=== PATIENT | male | born 1940 | race Caucasian/White ===

== ENCOUNTER 2024-09-24 09:45 | Emergency (ER) | payer MEDICARE, SELFPAY ==
[2024-09-24 09:45] VITALS: BP 188/77; BP 201/99; PULSE 60; PULSE 67; RESP 16; TEMP 36.4; O2SAT 100; BMI 34.4
--- NOTE | 2024-09-24 09:59 | EKG12_ITS ---
Test Reason : HTN Blood Pressure : / mmHG Vent. Rate : 063 BPM Atrial Rate : 063 BPM P-R Int : 184 ms QRS Dur : 106 ms QT Int : 416 ms P-R-T Axes : 029 009 066 degrees QTc Int : 425 ms Normal sinus rhythm Cannot rule out Inferior infarct , age undetermined Abnormal ECG Confirmed by MARICARMEN GONSALES, SHAW ([id number]), industrial editor ASIA ODONNELL ([id number]) on 09/25/2024 9:54:39 AM Referred By: Confirmed By:SHAW HERNADEZ MD
[2024-09-24 10:20] LABS: Absolute Lymphocyte Count 1.94 X10^3/uL (0.83-4.51); Absolute Neutrophil Count 2.5 X10^3/uL (2.0-7.7); Basophil# 0.02 X10^3/uL; Basophil% 0.4 % (0-1); Eosinophils% 3.9 % (0-5); Hematocrit 46.4 % (40-54); Hemoglobin 15.6 g/dL (13.0-16.5); Lymphocyte # 1.94 X10^3/ul (0.83-4.51); Lymphocyte % 37.5 % (19-41); Mean Corp Hgb Conc 33.6 g/dL (32-36); Mean Corpuscular Hgb 28.4 pg (27.0-32.0); Mean Corpuscular Volume 84.4 fL (80-94); Mean Platelet Vol. 9.4 fl (6.2-12.0); Monocyte# 0.44 X10^3/uL; Monocyte% 8.5 % (0-10); NRBC Flagged by Analyzer 0 % (0-5); Neutrophil # 2.54 X10^3/uL (2.7-7.7); Neutrophil % 49.1 % (47-70); Platelet Count 198 K/mm3 (150-450); RBC Distribution Width CV 13.8 % (11.6-14.6); RBC Distribution Width SD 42.5 fl (35.1-43.9); White Blood Count 5.2 K/mm3 (4.4-11.0)
--- NOTE | 2024-09-24 10:34 | RAD_ITS ---
INDICATION: cough EXAMINATION/TECHNIQUE: X-RAY - XR Chest 1 View COMPARISON: Prior study dated: 11/01/2006 FINDINGS: LINES/DEVICES: None. LUNGS: No consolidation, edema or effusion. No pneumothorax. MEDIASTINUM AND CARDIOVASCULAR STRUCTURES: Cardiac silhouette not enlarged. Central airways and mediastinal contour are unremarkable. BONES AND SOFT TISSUES: Bilateral shoulder arthroplasty. RAD/Chest 1 View (Portable) IMPRESSION: No radiographic evidence of acute cardiopulmonary disease. Electronically Signed: Brandon Link MD at 10:52 EDT ,
[2024-09-24 10:39] LABS: Anion Gap 3 (5-15); BUN 17 mg/dL (7-18); BUN/Creat Ratio 16.5 RATIO (10-20); Calcium,Total 9.3 mg/dL (8.5-10.1); Chloride 107 mmol/L (98-107); Creatinine, Serum 1.03 mg/dL (0.70-1.30); EST Glomerular Filtration Rate 74 mL/min (>60); Est Glom Filt Rate - Afr Amer 89 mL/min (>60); Estimated Creatinine Clearance 70.37 ml/min; Glucose 161 mg/dL (74-106); Potassium 4.2 mmol/L (3.5-5.1); Sodium Level 140 mmol/L (136-145)
--- NOTE | 2024-09-24 11:24 | CT_ITS ---
INDICATION: intermittent dizziness, blurred vision EXAMINATION: CT BRAIN - CT Head or Brain W/O Contrast Injection TECHNIQUE: Multiple axial images were obtained of the head without intravenous contrast. The protocol utilizes one or more of the following dose reduction techniques: automated exposure control, adjustment of mA and/or kV according to patient size,and/or use of iterative reconstruction technique. IV Contrast dosage and agent: None. RADIATION DOSAGE (If Supplied By Facility): CTDIvol = ( 44.99 ) mGy, DLP = ( 846.73 ) mGycm COMPARISON: No relevant prior comparison study available FINDINGS: BRAIN PARENCHYMA: No intra- or extra-axial hemorrhage. No evidence of acute infarct. No intracranial mass or mass effect. There is preservation of the hilliard/white matter interface. Atherosclerotic calcifications of the cavernous internal carotid arteries and of the vertebral arteries. Mild periventricular deep white matter changes likely due to mild chronic microvascular disease. Posterior fossa structures are unremarkable. CSF SPACES: Appropriate for age. No hydrocephalus. Basal cisterns are patent. CALVARIUM, SKULL BASE, PARANASAL SINUSES AND MASTOID AIR CELLS: Clear. No discrete lytic or blastic abnormalities. ORBITS: Both globes, extraocular muscles, optic nerves and retrobulbar fat appear unremarkable. ASPECTS Score for Acute Strokes: 10 CT/Brain/Head without Contrast IMPRESSION: No acute intracranial process. Electronically Signed: Brandon Link MD at 12:20 EDT ,
--- NOTE | 2024-09-24 11:26 | EDS_ITS ---
HPI History of Present Illness Chief Complaint: Hypertension Informant: patient and family ([place]) Narrative Narrative: 84-year-old male presents because he checked his blood pressure this morning and it was over 200 several times. He states he checked it because he was feeling poorly. States he felt really cold overnight. He has had cough and congestion for a month or 2 and often at nights he is feeling overly cold for reasons he cannot explain, needing multiple blankets and comforters in bed. This morning he felt a little swimmy in his head. That was transient short period of time not present right now. He thinks maybe that is what prompted him to check his blood pressure. The last some he checked his blood pressure at home was months ago. He states he typically is 140 or so. He was on antihypertensives about 10 years ago, but then he was having orthostasis and his pressures were low and so he was taken off of them and has not been back on 1 since although now he is on furosemide because of edema in his legs. He has been taking no cough or cold medications or decongestants. He denies any fevers that he knows of. No dyspnea but he had an episode of some chest tightness this morning that he cannot state how long it lasted. He also states off-and-on he has been having blurry vision. It is not just 1 eye or 1 part of his visual field, it is more everywhere when it occurs. He states his vision is not perfect right now but it is not very bad. He states when he is wearing his eyeglasses at times the TV looks blurry and at other times it is crystal-clear. He states this has been going on for couple months at least. He does not recall of his vision was blurry when he checked his blood pressure this morning and family states he did not necessarily say anything about it but they did provide the history regarding him telling them he felt a little swimmy and had some chest tightness but the patient did not tell me any of that initially. He denies any focal neurologic symptoms today. [facility] Medical History BPH (benign prostatic hyperplasia) Home Medications ?Medication ?Instructions ?Recorded ?Last Taken ?Type Vitamin C 1,000 mg PO DAILY 01/15/14 Unknown History amitriptyline 25 mg tablet 25 mg PO QHS 01/15/14 Unknown History furosemide 40 mg tablet 40 mg PO DAILY 01/15/14 Unknown History losartan 50 mg tablet 50 mg PO DAILY 01/15/14 Unknown History meloxicam 15 mg tablet 15 mg PO DAILY 01/15/14 Unknown History omega-3 fatty acids-fish oil 340 1 tab PO DAILY 01/15/14 Unknown History mg-1,000 mg capsule omeprazole 20 mg capsule,delayed 20 mg PO DAILY 01/15/14 Unknown History release clonidine HCl 0.1 mg tablet 0.1 - 0.2 mg (1 - 2 x 0.1 mg) PO 09/24/24 Unknown Rx Q8H PRN SBP > 180 #20 tabs Allergy/AdvReac Type Severity Reaction Status Date / Time No Known Allergies Allergy Verified 09/24/24 09:46 Family History no significant family his Surgical History no surgical history Social History Smoking Status: Never smoker ROS ROS ED Constitutional Constitutional ED: Reports malaise; Denies chills or fever(s) Eyes Eyes: Reports change in vision bilateral (Blurriness intermittently see HPI); Denies diplopia ENT ENT ED: Denies rhinorrhea or sore throat Cardiovascular Cardiovascular: Reports chest pain; Denies palpitations Respiratory/Chest Respiratory/Chest: Reports cough; Denies dyspnea Gastrointestinal Gastrointestinal: Denies abdominal pain, diarrhea, nausea or vomiting Genitourinary Genitourinary ED: Denies dysuria or hematuria Musculoskeletal Musculoskeletal: Denies back pain or neck pain Integumentary Denies abscess or rash Neurologic Neurologic: Reports as per HPI and dizziness; Denies abnormal gait, abnormal hearing, abnormal speech, headache(s), paresthesias or weakness EXAM Physical Exam Const Vital Signs: 09/24/24 09:45 09/24/24 09:45 09/24/24 10:30 Temperature 97.6 F L Temperature Source Temporal Pulse Rate 60 67 Respiratory Rate 16 16 Respiratory Effort Normal Non-Labored Respiratory Pattern Normal Blood Pressure 188/77 H 201/99 H Blood Pressure Mean 114 133 Pulse Ox 100 100 Oxygen Delivery Method Room Air Room Air 09/24/24 11:40 09/24/24 12:23 Temperature Temperature Source Pulse Rate 62 79 Respiratory Rate Respiratory Effort Respiratory Pattern Blood Pressure 189/94 H 164/86 H Blood Pressure Mean 125 112 Pulse Ox Oxygen Delivery Method Positive well nourished and well developed General Appearance ED: well developed and NAD HEENT Reports moist mucous membranes normocephalic and atraumatic Eyes PERRL and EOMs intact bilaterally Eyes Narrative: No pathologic nystagmus. Neck full ROM, no lymphadenopathy, supple and no JVD Chest Wall inspection of chest normal and palpation of chest normal Resp normal respiratory effort and clear to auscultation bilaterally Cardio regular rate, regular rhythm and no murmurs GI non-tender and non-distended Auscultation: normoactive bowel sounds Palpation: soft Back/Spine no CVA tenderness General Back: other FROM Extremity normal to inspection General Extremety ED: Negative for edema, pulses abnormal or tenderness General Extremity: Negative for edema or pulses abnormal Neuro oriented x3, CN's II-XII intact bilaterally and no sensory deficits noted Neuro Narrative: Normal speech. No aphasia or dysarthria. Normal levbpf-pp-syly and pifz-od-mrfg bilaterally. Normal skew test. Normal nystagmus test see above. Head impulse test not performed since patient not currently feeling dizzy. NIHSS 0. Sensorium / Orientation: awake and alert Motor Exam: strength 5/5 throughout Psych mental status grossly normal Skin no rashes or lesions noted and no wounds MDM MDM MDM Narrative Medical decision making narrative: At the time I am seeing the patient his blood pressure is 180 systolic, but on the next reading it is 201/99. He did not have any change in symptoms. He appears relatively well. Some of his symptoms are neurologic but not necessarily lateralizing. Given his blood pressure, and it sounds like it is not usually this high, I think reasonable to obtain a CT of the head. His EKG is normal, labs are normal including renal function and troponin, and 1 view chest x-ray on my interpretation is normal showing no signs of pulmonary edema or pneumonia, radiology was in agreement. I reviewed the CT images as well as the report which I agree with, it is negative for any acute. Patient has resolved symptoms, they are intermittent I do not think he is having an acute stroke. His blood work is normal including troponin and his EKG is unremarkable. In the meantime he was given IV hydralazine 10 mg after reviewing for prior echo, he does not have a history of 1, as well as a dose of oral clonidine 0.1 mg. On reexamination his blood pressure is 156 systolic. He is feeling relatively well. He still has some mild blurry vision like he did when I first evaluated him. This suggest that the hypertensive episode he is having right now is not necessarily recurring and causing the vision disturbances. Since his symptoms have been intermittent for longer than just this morning I do not think he needs to be admitted for an MRI given that the CT of the head is negative. Family states that they have a family member in the hospital right now and everyone is extremely stressed and anxious for them. She thinks that may be related to this episode of high blood pressure. I am not in disagr eement, but as I discussed with them we do not know the trend for his blood pressure since he has not had it checked in months. I recommend checking every other day or so for now, and I am going to prescribe him clonidine to use as needed only for right now. I would prefer that he continue his other medications as prescribed and follow-up to get a trend before starting a blood pressure medication. They are comfortable with that overall plan. Lab Data Attestation: I reviewed the patient's lab results. Labs: Laboratory Results - last 24 hr 09/24/24 09/24/24 10:14 11:50 WBC 5.2 RBC 5.50 Hgb 15.6 Hct 46.4 MCV 84.4 MCH 28.4 MCHC 33.6 RDW Std Deviation 42.5 RDW Coeff of Rush 13.8 Plt Count 198 MPV 9.4 Immature Gran % (Auto) 0.600 Neut % (Auto) 49.1 Lymph % (Auto) 37.5 [place] % (Auto) 8.5 Eos % (Auto) 3.9 Baso % (Auto) 0.4 Absolute Neuts (auto) 2.5 Absolute Lymphs (auto) 1.94 Nucleated RBC % 0 Sodium 140 Potassium 4.2 Chloride 107 Carbon Dioxide 30.0 Anion Gap 3 L BUN 17 Creatinine 1.03 Estim Creat Clear Calc 70.37 Est GFR (MDRD) Af Amer 89 Est GFR (MDRD) Non-Af 74 BUN/Creatinine Ratio 16.5 Glucose 161 H Calcium 9.3 Troponin I High Sens 6 Radiography Diagnostic Testing: Clinical Impression(s) from Imaging Studies Chest X-Ray 09/24/24 10:34 IMPRESSION: No radiographic evidence of acute cardiopulmonary disease. Electronically Signed: Brandon Link MD at 10:52 EDT , Brain CT 09/24/24 11:24 IMPRESSION: No acute intracranial process. Electronically Signed: Brandon Link MD at 12:20 EDT , Rhythm Strip Rhythm Strip: Sinus Rhythm Rate: 65 Ectopy: None EKG Initial EKG: Attestation: I personally reviewed and interpreted this EKG as follows: Interpretation: Sinus Rhythm and No Acute Injury Pattern Comments: Normal EKG at a rate of 63 normal axis intervals, with artifact due to motion Discharge Plan Triage Chief Complaint: Hypertension ED Provider: Jimi Tipton Dx/Rx/DC Orders Clinical Impression: Episode of hypertension, Dizziness, Blurred vision, bilateral, Respiratory tract congestion with cough Instructions: ED Hypertension, To Be Confirmed Prescriptions: New clonidine HCl 0.1 mg tablet 0.1 - 0.2 mg PO Q8H PRN (Reason: SBP > 180) Qty: 20 0RF No Action losartan 50 MG tablet 50 mg PO DAILY furosemide 40 MG tablet 40 mg PO DAILY meloxicam 15 MG tablet 15 mg PO DAILY amitriptyline 25 MG tablet 25 mg PO QHS omeprazole 20 MG capsule 20 mg PO DAILY omega-3 fatty acids-fish oil 1 EACH capsule 1 tab PO DAILY Vitamin C 500 MG tablet 1,000 mg PO DAILY Primary Care Provider: Titi Collins Referrals: Titi Collins MD [Primary Care Provider] - As soon as possible Print Language: [place] Disposition Disposition: Home, Self Care Stroke Documentation Questions Stroke Team Activated: No (No symptoms unclear if neurologic etiology) Was Patient considered for Endovascular Intervention?: No-CTA not indicated IV Thrombolytic Administered: No (Timing unclear, symptoms resolved)
[2024-09-24 11:40] VITALS: BP 189/94; PULSE 62
[2024-09-24] MEDS: cloNIDine HCl 0.1 MG Tablet PO (11:40)
[2024-09-24] MEDS: hydrALAZINE 20 MG/ML Vial 10 MG IV (11:40)
[2024-09-24 12:18] LABS: Troponin-I HS 6 pg/mL (3.0-78.0)
[2024-09-24 12:23] VITALS: BP 164/86; PULSE 79
[2024-09-24 13:26] VITALS: BP 135/81; PULSE 68; RESP 16; TEMP 36.6; O2SAT 99
== END 2024-09-24 13:36 | disposition home or self-care (01) ==
PROVIDERS: Emergency Provider Emergency Medicine; PCP Family Medicine; Visit Provider Emergency Medicine
DX: R42 Dizziness and giddiness (principal); H53.8 Other visual disturbances; I10 Essential (primary) hypertension; R05.9 Cough, unspecified; R09.81 Nasal congestion; R07.9 Chest pain, unspecified; R53.81 Other malaise; N40.0 Benign prostatic hyperplasia without lower urinary tract symptoms
CPT/HCPCS: 70450; 71045; 80048; 84484; 85025; 87631; 93005; 96374; 99283; A4216

== ENCOUNTER 2024-10-26 20:42 | Emergency (ER) | payer MEDICARE, SELFPAY ==
[2024-10-26] VITALS (18 sets, daily range): BP systolic 125–226; BP diastolic 72–121; PULSE 44–73; RESP 12–22; TEMP 36.4–36.7; O2SAT 97–99; BMI 35.2
--- NOTE | 2024-10-26 21:31 | EKG12_ITS ---
Test Reason : CP Blood Pressure : */* mmHG Vent. Rate : 56 BPM Atrial Rate : 56 BPM P-R Int : 208 ms QRS Dur : 96 ms QT Int : 408 ms P-R-T Axes : 54 23 52 degrees QTcB Int : 393 ms Sinus bradycardia Otherwise normal ECG When compared with ECG of 24-Sep-2024 10:09, Minimal criteria for Inferior infarct are no longer Present Confirmed by Esteban Escobar ([id number]), pictures editor TERRELL MORALES ([id number]) on 10/30/2024 6:56:35 AM Referred By: Zeb Greenberg Confirmed By: Esteban Escobar
--- NOTE | 2024-10-26 21:40 | RAD_ITS ---
INDICATION: chest pain EXAMINATION/TECHNIQUE: X-RAY - XR Chest 1 View COMPARISON: 09/24/2024. FINDINGS: LINES/DEVICES: None. LUNGS: No consolidation or evidence of an effusion. No evidence of edema or a pneumothorax. MEDIASTINUM AND CARDIOVASCULAR STRUCTURES: Cardiac silhouette is normal in size and contour. Mediastinum is unremarkable. BONES AND SOFT TISSUES: No acute abnormality. Chronic bilateral rib fractures. RAD/Chest 1 View (Portable) IMPRESSION: No evidence of acute cardiopulmonary disease. Electronically Signed: Oh Urbina DO at 22:03 EST ,
[2024-10-26 21:44] LABS: Absolute Lymphocyte Count 2.23 X10^3/uL (0.83-4.51); Absolute Neutrophil Count 2.9 X10^3/uL (2.0-7.7); Basophil# 0.02 X10^3/uL; Basophil% 0.3 % (0-1); Eosinophil# 0.26 X10^3/uL; Eosinophils% 4.4 % (0-5); Hematocrit 40.8 % (40-54); Hemoglobin 13.9 g/dL (13.0-16.5); Lymphocyte # 2.23 X10^3/ul (0.83-4.51); Lymphocyte % 38.1 % (19-41); Mean Corp Hgb Conc 34.1 g/dL (32-36); Mean Corpuscular Hgb 28.8 pg (27.0-32.0); Mean Corpuscular Volume 84.6 fL (80-94); Mean Platelet Vol. 10.2 fl (6.2-12.0); Monocyte# 0.45 X10^3/uL; Monocyte% 7.7 % (0-10); NRBC Flagged by Analyzer 0 % (0-5); Neutrophil # 2.86 X10^3/uL (2.7-7.7); Platelet Count 190 K/mm3 (150-450); RBC Distribution Width SD 42.8 fl (35.1-43.9); Red Blood Count 4.82 M/mm3 (4.6-6.2); White Blood Count 5.9 K/mm3 (4.4-11.0)
[2024-10-26] MEDS: Aspirin 81 MG TAB.CHEW 324 MG PO (21:45)
--- NOTE | 2024-10-26 21:48 | ED.RN ---
The pt stated What are the side effects of these meds? The RN replied the aspirin will make you have an easier risk of bleeding, the nitro may give you a headache. Pt stated I do not like headaches.. I dont want the nitro. This RN educated the patient stating Nitro will help your chest tightness and your blood pressure. Pt stated My bis barking at me to take it but I really dont like headaches. RN Notified MD. BP is now 149/78
[2024-10-26 22:02] LABS: Anion Gap 6 (5-15); BUN 17 mg/dL (7-18); BUN/Creat Ratio 16.3 RATIO (10-20); Calcium,Total 9.2 mg/dL (8.5-10.1); Chloride 106 mmol/L (98-107); Creatinine, Serum 1.04 mg/dL (0.70-1.30); EST Glomerular Filtration Rate 73 mL/min (>60); Est Glom Filt Rate - Afr Amer 88 mL/min (>60); Estimated Creatinine Clearance 70.47 ml/min; Glucose 134 mg/dL (74-106); Potassium 4.1 mmol/L (3.5-5.1); Sodium Level 138 mmol/L (136-145); Troponin-I HS (w/2H Reflex) 6 pg/mL (3.0-78.0)
--- NOTE | 2024-10-26 22:53 | EDS_ITS ---
HPI History of Present Illness Chief Complaint: Chest Pain Informant: patient Onset/Context/Timing Onset: Today Activity at onset: gradual Timing: Continuous Quality: Positive for Tightness Location: Substernal Worsened By: Nothing Relieved By: Nothing Associated Symptoms: Positive for Lightheadedness; Negative for Nausea, Vomiting, Diaphoresis, Dyspnea, Cough, Fever, Acid Reflux or Palpitations Narrative Narrative: Patient presents with chest pain and elevated blood pressure that began tonight. Patient states that his pain feels like a tightness. Patient states it is over the substernal area. Patient states it is constant. Patient states nothing makes it better nothing makes it worse. Patient states he was checking his blood pressure at home and it was gradually getting worse. Patient states he got up to 220 systolic at home. That is when he decided to come to the emergency department. Patient denies any nausea or vomiting. Patient denies any diaphoresis. Patient denies any shortness of breath or cough. Patient admits to some mild lightheadedness. CVD Risk Factors: Positive for Hypertension; Negative for Diabetes, Hypercholesterolemia, Family History 1' </=55 or Smoking PE Risk Factors: Negative for Recent Travel/Surgery, Recent Immobilization, Prior DVT or PE or Cancer [facility] Medical History (Updated 10/27/24 @ 00:[address] Zeb Greenberg, ) Hypertension BPH (benign prostatic hyperplasia) Home Medications ?Medication ?Instructions ?Recorded ?Last Taken ?Type furosemide 40 mg tablet 40 mg PO QWEEK 01/15/14 Unknown History clonidine HCl 0.1 mg tablet 0.1 - 0.2 mg (1 - 2 x 0.1 mg) PO 09/24/24 Unknown Rx Q8H PRN SBP > 180 #20 tabs losartan 25 mg tablet 25 mg PO DAILY 10/26/24 Unknown History Allergy/AdvReac Type Severity Reaction Status Date / Time No Known Allergies Allergy Verified 10/26/24 20:43 Surgical History (Updated 10/26/24 @ 23:[address] Zeb Greenberg DO) Hx of shoulder replacement Hx of foot surgery History of ankle surgery Social History Smoking Status: Never smoker ROS ROS ED Constitutional Constitutional ED: Reports chills and subjective; Denies fever(s) Eyes Eyes: Reports blurry vision; Denies change in vision ENT ENT ED: Denies rhinorrhea or sore throat Cardiovascular Cardiovascular: Reports chest pain; Denies palpitations Respiratory/Chest Respiratory/Chest: Denies cough or dyspnea Gastrointestinal Gastrointestinal: Denies nausea or vomiting Genitourinary Genitourinary ED: Denies dysuria or hematuria Musculoskeletal Musculoskeletal: Denies back pain or neck pain Integumentary Denies abscess or rash Neurologic Neurologic: Denies headache(s) or weakness Allergic/Immunologic Allergic/Immunologic ED: Denies mouth swelling or urticaria EXAM Physical Exam Const Vital Signs: 10/26/24 20:43 10/26/24 21:06 10/26/24 21:09 Temperature 97.6 F L Temperature Source Temporal Pulse Rate 56 L 60 62 Respiratory Rate 20 H 14 16 Blood Pressure 226/121 H 174/82 H Blood Pressure Mean 156 112 Pulse Ox 97 99 98 Oxygen Delivery Method Room Air Room Air 10/26/24 21:09 10/26/24 21:17 10/26/24 21:18 Temperature Temperature Source Pulse Rate 58 L 62 Respiratory Rate 17 16 Blood Pressure 174/82 H 193/98 H Blood Pressure Mean 110 125 Pulse Ox 98 Oxygen Delivery Method 10/26/24 21:30 10/26/24 21:31 10/26/24 21:40 Temperature Temperature Source Pulse Rate 64 60 Respiratory Rate 17 22 H Blood Pressure 160/88 H 156/78 H Blood Pressure Mean 105 101 Pulse Ox 97 98 Oxygen Delivery Method Room Air 10/26/24 21:44 10/26/24 21:45 10/26/24 22:00 Temperature Temperature Source Pulse Rate 56 L 55 L 51 L Respiratory Rate 14 18 15 Blood Pressure 149/78 H 140/73 H Blood Pressure Mean 99 95 Pulse Ox 99 99 97 Oxygen Delivery Method 10/26/24 22:00 10/26/24 22:15 10/26/24 22:30 Temperature Temperature Source Pulse Rate 52 L 46 L 51 L Respiratory Rate 15 13 13 Blood Pressure 140/73 H 125/72 H Blood Pressure Mean 95 88 Pulse Ox 99 97 98 Oxygen Delivery Method 10/26/24 22:45 10/26/24 23:00 10/26/24 23:39 Temperature 98.0 F Temperature Source Pulse Rate 48 L 44 L 45 L Respiratory Rate 13 16 17 Blood Pressure 137/73 H 149/72 H Blood Pressure Mean 91 97 Pulse Ox 98 98 97 Oxygen Delivery Method Positive well nourished and well developed General Appearance ED: well developed and NAD HEENT Reports moist mucous membranes Neck supple and no JVD Resp normal respiratory effort and clear to auscultation bilaterally Cardio regular rate and regular rhythm GI soft to palpation, non-tender and non-distended Extremity normal to inspection General Extremety ED: Negative for tenderness Neuro oriented x3, CN's II-XII intact bilaterally and no sensory deficits noted Sensorium / Orientation: awake and alert Motor Exam: strength 5/5 throughout Psych mental status grossly normal MDM MDM MDM Narrative Medical decision making narrative: Differential diagnosis includes cardiac dysrhythmia, cardiac ischemia, pneumonia, pneumothorax, congestive heart failure, hypertensive urgency, hypertensive emergency, electrolyte abnormality, and anxiety. EKG will be obtained to assess for cardiac dysrhythmia and cardiac ischemia. Chest x-ray will be obtained to assess for pneumonia, congestive heart failure, pneumothorax, and widened mediastinum. CBC will be obtained to assess for leukocytosis and anemia. Basic metabolic profile will be obtained to assess for electrolyte abnormality and renal function. High-sensitivity troponin will be obtained to assess for cardiac ischemia. 2-hour repeat high-sensitivity troponin will be obtained to assess for ongoing cardiac ischemia. Lab Data Attestation: I reviewed the patient's lab results. Lab results narrative: CBC was reviewed and was within normal limits. Basic metabolic profile was reviewed and was within normal limits. High-sensitivity troponin was reviewed and was normal at 6. 2-hour repeat high-sensitivity troponin was reviewed and was normal at 6. Labs: Laboratory Results - last 24 hr 10/26/24 10/26/24 21:15 23:15 WBC 5.9 RBC 4.82 Hgb 13.9 Hct 40.8 MCV 84.6 MCH 28.8 MCHC 34.1 RDW Std Deviation 42.8 RDW Coeff of Rush 14.0 Plt Count 190 MPV 10.2 Immature Gran % (Auto) 0.500 Neut % (Auto) 49.0 Lymph % (Auto) 38.1 [place] % (Auto) 7.7 Eos % (Auto) 4.4 Baso % (Auto) 0.3 Absolute Neuts (auto) 2.9 Absolute Lymphs (auto) 2.23 Nucleated RBC % 0 Sodium 138 Potassium 4.1 Chloride 106 Carbon Dioxide 26.0 Anion Gap 6 BUN 17 Creatinine 1.04 Estim Creat Clear Calc 70.47 Est GFR (MDRD) Af Amer 88 Est GFR (MDRD) Non-Af 73 BUN/Creatinine Ratio 16.3 Glucose 134 H Calcium 9.2 Troponin I High Sens 6 6 Radiography Diagnostic Testing: Clinical Impression(s) from Imaging Studies Chest X-Ray 10/26/24 21:40 IMPRESSION: No evidence of acute cardiopulmonary disease. Electronically Signed: Oh Urbina DO at 22:03 EST , Portable 1 view chest x-ray was obtained. On my independent interpretation, lung butts are clear. There is normal cardiac silhouette. Bony thorax is normal. There is no acute process noted. Radiologist also interpreted the x- ray and agrees. EKG Initial EKG: Attestation: I personally reviewed and interpreted this EKG as follows: Interpretation: No Acute Injury Pattern and Sinus Bradycardia (56) Comments: EKG was obtained. On my independent interpretation, it showed a sinus bradycardia with a rate of 56. [place] interval, QRS interval, and QTc i ntervals were all normal. Ray was normal. There are no acute ST or T wave changes. Prior EKG tracings: available for review Prior: Unchanged (09/24/2024) Treatment and Re-Evaluation :: Patient was given aspirin here. Patient was ordered nitroglycerin. Patient refused this because he did not want to have a headache after taking this. Patient's blood pressure improved to 137/73. Patient is resting comfortably on reevaluation. Patient was advised of his findings. Patient was instructed to follow-up with his primary care physician as scheduled. Patient states he has an appointment tomorrow. Patient was instructed to return if worse in any way. Patient understood and was agreeable with the plan. All questions were answered. Discharge Plan Triage Chief Complaint: Chest Pain ED Provider: Zeb Greenberg Dx/Rx/DC Orders Clinical Impression: Chest pain, Hypertension Instructions: ED Chest Pain, Uncertain Cause, ED Hypertension, Established Prescriptions: No Action furosemide 40 MG tablet 40 mg PO QWEEK clonidine HCl 0.1 mg tablet 0.1 - 0.2 mg PO Q8H PRN (Reason: SBP > 180) Qty: 20 0RF losartan 25 mg tablet 25 mg PO DAILY Primary Care Provider: Titi Collins Referrals: Titi Collins MD [Primary Care Provider] - Keep Tawny appointment Print Language: Lao Disposition Disposition: Home, Self Care
[2024-10-26 23:40] LABS: Reflex Troponin-HS? (from REC) Y
[2024-10-26 23:57] LABS: Troponin-I HS 6 pg/mL (3.0-78.0)
[2024-10-27] VITALS: BP 159/80; PULSE 52; RESP 15
== END 2024-10-27 00:12 | disposition home or self-care (01) ==
PROVIDERS: Emergency Provider Emergency Medicine; PCP Family Medicine; Referring Provider Emergency Medicine; Visit Provider Emergency Medicine
DX: R07.9 Chest pain, unspecified (principal); I10 Essential (primary) hypertension; R42 Dizziness and giddiness; Z79.899 Other long term (current) drug therapy
CPT/HCPCS: 71045; 80048; 84484; 85025; 93005; 99284; A4216

== ENCOUNTER 2024-10-30 10:08 | Emergency (ER) | payer MEDICARE, SELFPAY ==
[2024-10-30 10:10] VITALS: BP 173/70; PULSE 57; RESP 18; TEMP 36.6; O2SAT 100; BMI 34.9
--- NOTE | 2024-10-30 10:28 | EX.ED.DYSGE1 ---
HPI History of Present Illness Chief Complaint: Nosebleed Detail of Chief Complaint: Nosebleed Informant: patient Narrative Narrative: Patient presents to the emergency department complaint of a nosebleed that he has had off-and-on for about 2 weeks. Patient states that he has stage IV colon cancer. He is been dealing with some high blood pressure issues of late and was recently started on Lasix as well as clonidine and losartan. Patient will intermittently have nosebleeds but they stopped pretty quickly with holding some pressure. Denies any trauma to his nose. Patient apparently seen in the emergency department on the of this month for chest pain and had a workup with labs that were unremarkable. [facility] Medical History (Updated 10/30/24 @ 10:[address] Alecia Xiong DO) Hypertension BPH (benign prostatic hyperplasia) Home Medications ?Medication ?Instructions ?Recorded ?Last Taken ?Type furosemide 40 mg tablet 40 mg PO QWEEK 01/15/14 Unknown History clonidine HCl 0.1 mg tablet 0.1 - 0.2 mg (1 - 2 x 0.1 mg) PO 09/24/24 Unknown Rx Q8H PRN SBP > 180 #20 tabs losartan 25 mg tablet 25 mg PO DAILY 10/26/24 Unknown History Allergy/AdvReac Type Severity Reaction Status Date / Time No Known Allergies Allergy Verified 10/30/24 10:09 Surgical History (Updated 10/26/24 @ 23:[address] Zeb Greenberg DO) Hx of shoulder replacement Hx of foot surgery History of ankle surgery Social History Smoking Status: Never smoker ROS ROS ED Review of Systems ROS Unobtainable: other Constitutional Constitutional ED: Reports lethargy; Denies chills, fever(s), sweats or weight loss Eyes Eyes: Denies blurry vision, change in vision or diplopia ENT ENT ED: Reports other Details: Right-sided nosebleed ; Denies rhinorrhea or sore throat Cardiovascular Cardiovascular: Denies chest pain, orthopnea or racing heartbeat Respiratory/Chest Respiratory/Chest: Denies cough, dyspnea, dyspnea on exertion, orthopnea or sputum Gastrointestinal Gastrointestinal: Denies abdominal pain, diarrhea, nausea or vomiting Genitourinary Genitourinary ED: Denies dysuria, hematuria or urinary frequency Musculoskeletal Musculoskeletal: Denies arthralgias, back pain, myalgias or neck pain Integumentary Denies abscess, Abrasions or rash Neurologic Neurologic: Denies headache(s) or weakness Psychiatric Psychiatric: Denies anxiety, depression or suicidal thoughts Endocrine Endocrinology: Denies polydipsia, polyphagia or polyuria Hematologic/Lymphatic Hematologic/Lymphatic: Denies easy bleeding, easy bruising or lymphadenopathy Allergic/Immunologic Allergic/Immunologic ED: Denies mouth swelling, tongue swelling or urticaria EXAM Physical Exam Const Vital Signs: 10/30/24 10:10 Temperature 98 F Temperature Source Temporal Pulse Rate 57 L Respiratory Rate 18 Blood Pressure 173/70 H Blood Pressure Mean 104 Pulse Ox 100 Oxygen Delivery Method Room Air Positive well nourished and well developed General Appearance ED: well developed and NAD HEENT Reports TM's clear and moist mucous membranes HEENT Narrative: Evaluation of the nose reveals some dried blood at the exterior portion of the nasal vault. I did clean the area of dried blood and inspected the nasal vault. There is no active bleeding currently. I do not see any exposed blood vessels or source of bleeding. normocephalic and atraumatic; Negative for trauma or tenderness Tympanic Membrane ED: Yes TM's clear Eyes PERRL and EOMs intact bilaterally General Eye ED: Negative for pale conjunctiva or scleral icterus Neck no lymphadenopathy, supple and no JVD General: Negative for tenderness Chest Wall inspection of chest normal and palpation of chest normal Chest: Negative for tenderness Resp normal respiratory effort and clear to auscultation bilaterally Effort and Inspection: Negative for respiratory distress or pain with movement Auscultation: Negative for rhonchi, wheezes or diminished lung sounds Cardio regular rate, regular rhythm, S1 normal heart sound, S2 normal heart sound and no murmurs Peripheral Pulses: pulses 2+ throughout GI normal to inspection, nondistended, normoactive bowel sounds, soft to palpation, non-tender, non-distended and no masses Back/Spine no CVA tenderness and no thoracic nor lumbar tenderness Extremity normal to inspection General Extremety ED: Negative for edema General Extremity: Negative for edema Neuro oriented x3, CN's II-XII intact bilaterally, no sensory deficits noted and gait normal Sensorium / Orientation: awake, alert, oriented to person, oriented to place and oriented to time Motor Exam: strength 5/5 throughout and strength abnormal Psych mental status grossly normal Skin no rashes or lesions noted and no wounds MDM MDM MDM Narrative Medical decision making narrative: Patient with ongoing nosebleed off and on for 2 weeks. Clinically looks well. No source of bleeding noted although cannot rule out a posterior hemorrhage. Patient states that typically does not have bleeding down the oropharynx. Bleeding stops easily. At this point will refer to ENT for follow-up. Advised all constant pressure for 20 minutes if the bleeding does not stop he is to return to the emergency department. Discharge Plan Triage Chief Complaint: Nosebleed ED Provider: Alecia Xiong Dx/Rx/DC Orders Clinical Impression: Epistaxis Instructions: ED Epistaxis (Adult) Prescriptions: No Action furosemide 40 MG tablet 40 mg PO QWEEK clonidine HCl 0.1 mg tablet 0.1 - 0.2 mg PO Q8H PRN (Reason: SBP > 180) Qty: 20 0RF losartan 25 mg tablet 25 mg PO DAILY Primary Care Provider: Titi Collins Referrals: Obie Ospina MD [Med Staff - Active Staff] - 3-5 Days Titi Collins MD [Primary Care Provider] - Print Language: Hungarian Disposition Disposition: Home, Self Care
== END 2024-10-30 10:42 | disposition home or self-care (01) ==
LOC: ED 10:33
PROVIDERS: Emergency Provider Emergency Medicine; PCP Family Medicine; Visit Provider Emergency Medicine
DX: R04.0 Epistaxis (principal); C18.9 Malignant neoplasm of colon, unspecified; I10 Essential (primary) hypertension; Z79.899 Other long term (current) drug therapy; Z96.619 Presence of unspecified artificial shoulder joint
CPT/HCPCS: 99282

== ENCOUNTER → 2024-11-13 | Outpatient (CLI) | payer MEDICARE, SELFPAY ==
--- NOTE | 2024-11-13 07:58 | RDU_ITS ---
Reason For Study: HTN Right Renal Artery Left Renal Artery Right renal artery ostium 91.1/36.2 Left renal artery ostium 100.3/25.4 RSV/EDV. PSV/EDV. Right renal artery proximal Left renal artery proximal PSV/EDV 95.5/25.2 PSV/EDV. 127.7/27.2 . Right renal artery mid 140.2/30.5 Left renal artery mid 116.7/18/.1 PSV/EDV. PSV/EDV . Right renal artery distal 76.4/22.7 Left renal artery distal 103.9/19.9 PSV/EDV. PSV/EDV. Right RAR 1.47. Left RAR 1.34. Right Renal Parenchyma Left Renal Parenchyma Upper Pole Medula 26.4/8.1 PSV/EDV. Left upper pole medulla 31.9/11.8 Right upper pole medulla EDR 0.30 . PSV/EDV . Right upper pole medulla R.I. Left upper pole medulla EDR 0.40 . 0.69 . Left upper pole medulla R.I. 0.63 . Upper Alek Cortx 17.5/6.0 PSV/EDV. UP Cortex 28.2/10.9 PSV/EDV. Right upper pole cortex EDR 0.30 . Left upper pole cortex EDR 0.40 . Right upper pole cortex R.I. 0.66 . Left upper pole cortex R.I. 0.61 . Right lower Pole medulla 27.4/9.8 Left lower Pole medulla 31.0/10.9 PSV/EDV . PSV/EDV . Right lower pole medulla EDR 0.40 . Left lower pole medulla EDR 0.40 . Right lower pole medulla R.I. Left lower pole medulla R.I. 0.65 . 0.64 . Lower Pole Cortx 19.1/8.1 PSV/EDV. Lower Pole Cortex 13.1/5.4 PSV/EDV. Left lower pole cortex EDR 0.40 . Right lower pole cortex EDR 0.40 . Left lower pole cortex R.I. 0.57 . Right lower pole cortex R.I. 0.59 . Left Renal Hilar Right Renal Hilar LT Hilar avg 60.1/21.7 PSV/EDV . Right Hilar avg 72.9/23.6 PSV/EDV. Left hilar acceleration time 30 Right hilar acceleration time 30 m/sec. m/sec. Left Renal Dimensions Right Renal Dimensions Left kidney size 12.40 cm . Right kidney size 12.88 cm . Left cortical dimension 1.43 cm . Right cortical dimension 1.60 cm . Aorta Proximal abdominal aorta 2.08 x 2.00 cm . Distal abdominal aorta 2.14 x 2.14 cm . Proximal abdominal aorta peak systolic velocity is 95.3 cm/sec . Distal abdominal aorta peak systolic velocity is 66.2 cm/sec . VL/Renal Artery Duplex Ultrasound Interpretation Summary Right renal artery patent with normal velocities and no evidence of stenosis. Left renal artery patent with normal velocities and no evidence of stenosis. Right renal vein patent. Left renal vein patent. Right kidney normal in size. Left kidney normal in size Ordering Physician: Salena Murray Referring Physician: MD Karina Titi Performed By: Juan Jose Birmingham RVT
== END | disposition home or self-care (01) ==
LOC: CVS 07:57
PROVIDERS: PCP Family Medicine; Referring Provider Nurse Practitioner Family; Visit Provider Nurse Practitioner Family
DX: I1A.0 Resistant hypertension (principal); I10 Essential (primary) hypertension
CPT/HCPCS: 93975

== ENCOUNTER 2025-07-15 13:35 | Emergency (ER) | payer MEDICARE, SELFPAY ==
[2025-07-15 13:36] VITALS: BP 157/70; PULSE 57; RESP 18; TEMP 36.4; O2SAT 100
--- NOTE | 2025-07-15 13:55 | EX.ED.DYSGE1 ---
HPI <FAUSTINO Yañez - Last Filed: 07/15/25 15:24> History of Present Illness Chief Complaint: Lower Extremity Injury Narrative Narrative: 84-year-old male with high blood pressure presents with right low back pain. He got out of his car this morning and felt pain in his right lower back. He walked for a while and then the pain became worse. He took Tylenol and is on meloxicam daily but this has not helped. He denies pain radiating down the legs, no weakness or paresthesias, no saddle esthesia or bladder continence. There was no fall or trauma. He has no abdominal pain, nausea or vomiting, or urinary symptoms. [facility] <FAUSTINO Yañez - Last Filed: 07/15/25 15:24> [facility] Medical History (Updated 07/16/25 @ 07:[address] Juan Putnam MD) Hypertension BPH (benign prostatic hyperplasia) Home Medications ?Medication ?Instructions ?Recorded ?Last Taken ?Type furosemide 40 mg tablet 40 mg PO QWEEK 01/15/14 Unknown History clonidine HCl 0.1 mg tablet 0.1 - 0.2 mg (1 - 2 x 0.1 mg) PO 09/24/24 Unknown Rx Q8H PRN SBP > 180 #20 tabs losartan 25 mg tablet 25 mg PO DAILY 10/26/24 Unknown History hydrocodone-acetaminophen 5-325mg 1 tab PO Q8H PRN pain 3 days #9 07/15/25 Unknown Rx 5mg-325mg tabs lidocaine 5 % topical patch 1 patch topical DAILY #15 ea 07/15/25 Unknown Rx (Lidoderm) ondansetron 4 mg disintegrating 4 mg PO Q8H PRN PRN Nausea #10 tabs 07/15/25 Unknown Rx tablet Allergy/AdvReac Type Severity Reaction Status Date / Time No Known Allergies Allergy Verified 07/15/25 13:36 Surgical History Hx of shoulder replacement Hx of foot surgery History of ankle surgery Social History Smoking Status: Never smoker ROS <FAUSTINO Yañez - Last Filed: 07/15/25 15:24> ROS ED ROS Narrative Constitutional: Negative for fever, chills, malaise. GI: Negative for abdominal pain, vomiting. : Negative for dysuria, hematuria or frequency. EXAM <FAUSTINO Yañez - Last Filed: 07/15/25 15:24> Physical Exam Narrative Exam Narrative: CONST: Patient sitting in no acute distress. EYES: Normal inspection. NECK: Normal inspection. RESP: No respiratory distress, CTAB. CVS: Regular rate and rhythm, no murmur, no gallop. ABD: Soft and nontender, no guarding or rebound, nondistended. Back: Normal inspection, no midline or reproducible tenderness. Indicates area of pain in his lumbar area. No bony tenderness of the lower extremities, likely secondary to back pain. Limited ankle mobility, bilateral ankle fusions. Normal sensation, 2+ PT pulses. SKIN: Color normal, no rash, warm, dry, intact. EXTREMITIES: Normal appearance, bilateral nonpitting ankle edema. NEURO: Alert and answering questions appropriately. PSYCH: Normal affect. Const Vital Signs: 07/15/25 13:36 07/15/25 15:21 Temperature 97.6 F L 98.2 F Temperature Source Temporal Pulse Rate 57 L 51 L Respiratory Rate 18 20 H Blood Pressure 157/70 H 186/78 H Blood Pressure Mean 99 114 Pulse Ox 100 98 Oxygen Delivery Method Room Air <Dr. Juan Putnam MD - Last Filed: 07/16/25 07:17> Physical Exam Const Vital Signs: 07/15/25 13:36 07/15/25 15:21 Temperature 97.6 F L 98.2 F Temperature Source Temporal Pulse Rate 57 L 51 L Respiratory Rate 18 20 H Blood Pressure 157/70 H 186/78 H Blood Pressure Mean 99 114 Pulse Ox 100 98 Oxygen Delivery Method Room Air MDM <FAUSTINO Yañez - Last Filed: 07/15/25 15:24> MDM MDM Narrative Medical decision making narrative: History gathered from: Patient and spouse Differential includes but not limited to lumbar strain, sciatica, radiculopathy, cauda equina syndrome, fracture 84-year-old male developed right lumbar pain when getting out of the vehicle this morning. No trauma. Does not radiate down the leg. He has no red flag signs concerning for cauda equina syndrome. He has had both ankles fused still has chronic limited mobility but can normally ambulate on his own without an assistive device. He appears uncomfortable but nontoxic. Vital stable. He is grimacing with movement but can lean forward for the back examination. He has no midline tenderness and no reproducible tenderness of the muscles although he points that it is the right paralumbar region. He does not have hip pain and can move both hips although it is limited by pain. Patient good strength with plantar and dorsi flexion of the toes. Pulses intact. X-rays of the lumbar spine and right hip show osteoarthritis with no other acute findings. Was treated with IV morphine and Toradol with improvement. He declined a walker. He already takes meloxicam at home so I recommend he take Tylenol every 6 hours and use ice and lidocaine patches. I prescribed [place] for breakthrough pain but he states this has caused significant nausea and vomiting in the past so I prescribed antiemetics. I recommended follow-up with his primary care and he was discharged in stable condition. I have personally performed a face to face assessment of the patient and have reviewed the LES Note. I performed a substantive portion of the visit including all aspects of the following. My forbes findings include: History is remarkable for acute right lower paralumbar pain. He has never had pain like this before. Does not radiate. He states its his hip but he points to the right paralumbar region. He denies bowel bladder dysfunction. No saddle paresthesia or anesthesia. He denies foot drop. He states he has had both of his ankles fused. He does not have a history of cancer. There is a strong family history of cancer but not him. He denies weight gain or weight loss. There is no history of direct or indirect trauma other than getting out of the car. States the pain is severe. Exam is remarkable for patient grimacing with minimal movement. Patient has a negative straight leg test. He has pain in his lower back with elevation. There is no ankle reflex since his ankles have been fused. He has plus minus patellar reflex. EHLs intact bilaterally. He reports abnormal sensation S1 on the left. There is no abnormality L3-L5 either side. Patient has good strength with plantar dorsiflexion of his toes since he has had his ankles fused.. Medical Decision Making Donny initially was concerned that he has history malignancy x-ray was obtained. He and his states he does not have a history of malignancy. 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 Reading Location: [place] [id number] Lumbar Spine X-Ray 07/15/25 14:18 IMPRESSION: ADVANCED DEGENERATIVE CHANGES OF THE LUMBAR SPINE. Reading Location: [place] [address] ED attending to facial lumbar spine shows significant degenerative changes, no acute fracture. ED attending interpretation of right hip shows no fracture or dislocation. <Dr. Juan Putnam MD - Last Filed: 07/16/25 07:17> [facility] MDM Narrative Medical decision making narrative: I have personally performed a face to face assessment of the patient and have reviewed the LES Note. I performed a substantive portion of the visit including all aspects of the following. My forbes findings include: History is remarkable for acute right lower paralumbar pain. He has never had pain like this before. Does not radiate. He states its his hip but he points to the right paralumbar region. He denies bowel bladder dysfunction. No saddle paresthesia or anesthesia. He denies foot drop. He states he has had both of his ankles fused. He does not have a history of cancer. There is a strong family history of cancer but not him. He denies weight gain or weight loss. There is no history of direct or indirect trauma other than getting out of the car. States the pain is severe. Exam is remarkable for patient grimacing with minimal movement. Patient has a negative straight leg test. He has pain in his lower back with elevation. There is no ankle reflex since his ankles have been fused. He has plus minus patellar reflex. EHLs intact bilaterally. He reports abnormal sensation S1 on the left. There is no abnormality L3-L5 either side. Patient has good strength with plantar dorsiflexion of his toes since he has had his ankles fused.. Medical Decision Making Donny initially was concerned that he has history malignancy x-ray was obtained. He and his states he does not have a history of malignancy. Other additions or changes: [None] Radiography Chest X-Ray - ED: Read by ED Physician (Three-view x-ray of the LS-spine reveals significant advanced degenerative changes multiple levels. There is a grade 1 anterior spondylolisthesis of L4 on 5. Interpreted by me at 1447.) and - (Three-view x-ray of the right hip reveals arthritic changes of the pelvis well as the greater and lesser trochanter process. There is no evidence of fracture, subluxation dislocation. 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 Reading Location: [facility]1 Lumbar Spine X-Ray 07/15/25 14:18 IMPRESSION: ADVANCED DEGENERATIVE CHANGES OF THE LUMBAR SPINE. Reading Location: [facility]--1 Discharge Plan Triage Chief Complaint: Lower Extremity Injury ED Midlevel Provider: Brittni Zimmerman ED Provider: Juan Putnam Dx/Rx/DC Orders Clinical Impression: Right lumbar pain, Elevated blood pressure reading with diagnosis of hypertension, Sinus bradycardia Instructions: ED Back Pain (Acute or Chronic) Prescriptions: New hydrocodone-acetaminophen 5-325 mg tablet 1 tab PO Q8H PRN (Reason: pain) 3 Days Qty: 9 0RF ondansetron 4 mg tablet,disintegrating 4 mg PO Q8H PRN PRN (Reason: Nausea) Qty: 10 0RF lidocaine [Lidoderm] 5 % adhesive patch,medicated 1 patch topical DAILY Qty: 15 0RF Rx Instructions: leave on most painful area for up to 12 hrs No Action furosemide 40 MG tablet 40 mg PO QWEEK clonidine HCl 0.1 mg tablet 0.1 - 0.2 mg PO Q8H PRN (Reason: SBP > 180) Qty: 20 0RF losartan 25 mg tablet 25 mg PO DAILY Primary Care Provider: Titi Collins Referrals: Titi Collins MD [Primary Care Provider] - Activity Restrictions/Additional Instructions: Keep taking your meloxicam once a day. You can take Tylenol every 6 hours. I prescribed [place] as needed for breakthrough pain. This medication can cause nausea and vomiting so I recommend you take it with the Zofran. It also can cause constipation so take a stool softener like MiraLAX or Metamucil. Follow-up with your primary care doctor for your back pain. Print Language: Haitian Disposition Disposition: Home, Self Care Discharge Date/Time: 07/15/25 15:29
[2025-07-15 14:14] VITALS: BMI 35.6
--- NOTE | 2025-07-15 14:18 | RAD_ITS ---
PROCEDURE: LUMBAR SPINE 2 OR 3 VIEWS 07/15/2025 REASON FOR EXAM: PAIN Low back and right hip pain. TECHNIQUE: LUMBAR SPINE 2 OR 3 VIEWS COMPARISON: None FINDINGS: Vertebrae: Multilevel spondylosis. Discs: Advanced multilevel disc space narrowing with endplate osteophytes. Alignment: Minimal anterior listhesis of L4 on L5. Other: Facet joint osteoarthritis. RAD/Lumbar Spine 2 or 3 Views IMPRESSION: ADVANCED DEGENERATIVE CHANGES OF THE LUMBAR SPINE. Reading Location: [facility]
--- NOTE | 2025-07-15 14:18 | RAD_ITS ---
PROCEDURE: HIP, UNI W/ PELVIS 2-3 VIEWS 07/15/2025 REASON FOR EXAM: PAIN Right hip pain. TECHNIQUE: HIP, UNI W/ PELVIS 2-3 VIEWS Laterality: Right hip COMPARISON: None FINDINGS: Bones: No fracture seen. Joints: Mild degree of joint space narrowing of both hip joints. Soft tissues: Soft tissues are unremarkable. 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 Reading Location: [facility]
[2025-07-15 15:21] VITALS: BP 186/78; PULSE 51; RESP 20; TEMP 36.8; O2SAT 98
== END 2025-07-15 15:29 | disposition home or self-care (01) ==
PROVIDERS: Emergency Provider Emergency Medicine; PCP Family Medicine; Visit Provider Emergency Medicine
DX: M54.50 Low back pain, unspecified (principal); I10 Essential (primary) hypertension; R00.1 Bradycardia, unspecified; Z79.899 Other long term (current) drug therapy
CPT/HCPCS: 72100; 73502; 96374; 96375; 99284; A4216; J2405